=== PATIENT | female | born 1965 | race Caucasian/White ===

== ENCOUNTER 2023-10-28 10:57 | Inpatient (IN) | payer MEDICAID ==
[~2023-10-28] VITALS: Ht 154.9 cm; Wt 79.4 kg
[2023-10-28 11:49] LABS: BASOPHILS % 0.2 % (0.0-2.0); EOSINOPHILS % 1.1 % (0.0-5.0); HEMATOCRIT. 42.7 % (36.0-48.0); HEMOGLOBIN. 14.5 g/dL (12.0-16.0); LYMPHOCYTES % 27.8 % (20.0-50.0); MEAN CORPUSCULAR HEMOGLOBIN 29.7 pg (28.0-32.0); MEAN CORPUSCULAR HGB CONC 33.8 g/dL (31.0-37.0); MEAN CORPUSCULAR VOLUME 87.8 fL (81.0-99.0); MONOCYTES % 4.5 % (2.0-8.0); NEUTROPHILS % 66.4 % (40.0-76.0); PLATELET 236 x1000/uL (130-400); RED BLOOD CELL COUNT 4.87 mill/uL (4.2-5.4); RED CELL DISTRIBUTION WIDTH 13.1 % (11.6-14.6); WHITE BLOOD COUNT 9.1 x1000/uL (4.5-11.0)
[2023-10-28 12:01] LABS: INR 0.9; PROTHROMBIN TIME 10.6 sec (9.6-11.0)
[2023-10-28 12:39] LABS: ALANINE AMINOTRANSFERASE 57 IU/L (10-49); ALBUMIN 4.6 g/dL (3.2-4.8); ASPARTATE AMINOTRANSFERASE 37 IU/L (<34); BILIRUBIN TOTAL 1.3 mg/dL (0.1-1.0); CARBON DIOXIDE 23 mEq/L (21-32); CHLORIDE 107 mEq/L (98-107); CREATININE 0.6 mg/dL (0.6-1.0); GLUCOSE 196 mg/dL (70-105); POTASSIUM 3.6 mEq/L (3.5-5.1); PROTEIN TOTAL 8.1 g/dL (6.0-8.3); SODIUM 137 mEq/L (136-145); UREA NITROGEN BLOOD 7 mg/dL (9-23)
[2023-10-28 13:23] LABS: TROPONIN I HIGH SENSITIVITY < 4 ng/L (3.0-34)
[2023-10-28] MEDS: ONDANSETRON HCL 4MG/2ML INJ IV NR (18:17)
[2023-10-28] MEDS: CEFTRIAXONE 1GM/50ML 50 ML IV ONE (18:17)
[2023-10-29] MEDS: MORPHINE SULFATE 4 MG/ML INJ (FOR IV/IM USE) IV NR (00:28)
[2023-10-29] MEDS: ONDANSETRON HCL 4MG/2ML INJ IV NR (00:29)
[2023-10-29] MEDS: ONDANSETRON HCL 4MG/2ML INJ IV ONE (00:29)
[2023-10-29] MEDS: MORPHINE SULFATE 4 MG/ML INJ (FOR IV/IM USE) IV ONE (00:29)
[2023-10-29] MEDS ORDERED: ACETAMINOPHEN 325MG TABLET PO PRN (09:45)
[2023-10-29] MEDS ORDERED: ONDANSETRON HCL 4MG/2ML INJ IV PRN (09:45)
[2023-10-29 10:38] VITALS: BP 148/86; PULSE 91; RESP 16; TEMP 98.2
[2023-10-29 11:07] LABS: CLARITY URINE CLOUDY (CLEAR); COLOR URINE DARK YELLOW (YELLOW); GLUCOSE URINE NEGATIVE (NEGATIVE); KETONES URINE TRACE (NEGATIVE); LEUKOCYTE ESTERASE URINE NEGATIVE (NEGATIVE); NITRITE URINE NEGATIVE (NEGATIVE); OCCULT BLOOD URINE NEGATIVE (NEGATIVE); PROTEIN URINE TRACE (NEGATIVE); SPECIFIC GRAVITY URINE 1.025 (1.005-1.030); UROBILINOGEN URINE 0.2 E.U./dL (0.2-1.0)
[2023-10-29 11:23] LABS: MUCUS URINE 3+ /lpf (< = 2+); SQUAMOUS EPITHELIAL CELL URINE 1+ /lpf (RARE/1+)
[2023-10-29 11:24] LABS: BACTERIA URINE 1+
[2023-10-29 11:25] LABS: RBC URINE 0-2 /hpf (0-2)
[2023-10-29 12:00] VITALS: BP 138/67; PULSE 84; RESP 20; TEMP 98.2
[2023-10-29 16:24] VITALS: BP 138/67; PULSE 84; TEMP 98; O2SAT 100
[2023-10-29 16:29] VITALS: BP 138/67; PULSE 84; TEMP 98; O2SAT 100
== END 2023-10-29 16:42 | disposition home or self-care (01) | DRG 48 ==
LOC: ER 10:57 → 6EST 22:46 → EDBEDREQ 23:11 → EDBEDREQTM 23:11
PROVIDERS: ADMIT Internal Medicine; ATTEND Internal Medicine
DX: G90.8 Other disorders of autonomic nervous system (principal); K76.0 Fatty (change of) liver, not elsewhere classified; E66.9 Obesity, unspecified; Z68.33 Body mass index [BMI] 33.0-33.9, adult; K80.20 Calculus of gallbladder without cholecystitis without obstruction; K82.8 Other specified diseases of gallbladder; R42 Dizziness and giddiness
CPT/HCPCS: 36415; 71045; 74176; 76705; 80053; 81003; 84484; 85025; 93005; 99285; J0696; J2270; J2405